=== PATIENT | female | born 1955 | race Hispanic/Latino ===

== ENCOUNTER 2022-01-03 17:32 | Emergency (ER) | payer OTHER ==
[~2022-01-03] VITALS: Ht 154.9 cm; Wt 62.1 kg
[2022-01-03 18:21] LABS: BILIRUBIN,URINE Negative (NEGATIVE); COLOR,URINE Dark Yellow (YELLOW); GLUCOSE, URINE (UA) Negative (NEGATIVE); KETONES,URINE Negative (NEGATIVE); LEUKOCYTE ESTERASE ,URINE Moderate (NEGATIVE); NITRATE,URINE Negative (NEGATIVE); OCCULT BLOOD,URINE Negative (NEGATIVE); PH,URINE 7.5 (5.0-8.0); PROTEIN,URINE Negative (NEGATIVE); UROBILINOGEN,URINE 0.2 mg/dL (0.2-1.0)
[2022-01-03 18:26] LABS: APPEARANCE,URINE CLOUDY (CLEAR)
[2022-01-03] MEDS ORDERED: KETOROLAC 15MG/ML VIAL (15MG/ML) IV ONE (18:30)
[2022-01-03] MEDS ORDERED: ONDANSETRON 4MG INJ IVP ONE (18:30)
[2022-01-03] MEDS ORDERED: 0.9%NACL 1000ML 1,000 ML IV ONE (18:30)
[2022-01-03] MEDS ORDERED: MORPHINE 4 MG SYG IVP ONE (18:30)
[2022-01-03 18:36] LABS: AMORPHOUS SEDIMENT,UR Moderate /LPF (None Seen); BACTERIA,URINE Few /HPF (None Seen); SQUAMOUS EPITHELIAL CELL,UR Rare /HPF (0-2); WBC,URINE 0-1 /HPF (0-1)
[2022-01-03 18:47] LABS: BASOPHILS % (AUTO) 0.4 % (0.0-5.0); EOSINOPHILS % (AUTO) 1.2 % (0.0-8.0); HEMATOCRIT 36.2 % (36-48); LYMPHOCYTES % (AUTO) 29.6 % (21.0-51.0); MEAN CORPUSCULAR HEMOGLOBIN 28.8 pg (27.0-33.0); MEAN CORPUSCULAR HGB CONC 33.1 g/dL (32.0-36.0); MEAN CORPUSCULAR VOLUME 86.8 fL (79-99); MONOCYTES % (AUTO) 6.3 % (3.0-13.0); NEUTROPHILS % (AUTO) 62.1 % (40.0-77.0); PLATELET COUNT (AUTO) 352 K/uL (130-400); RED BLOOD CELL COUNT(AUTO) 4.17 MIL/uL (4.00-5.50); RED CELL DISTRIBUTION WIDTH 13.9 % (11.0-15.5); WHITE BLOOD COUNT (AUTO) 10.9 K/uL (4.8-10.8)
[2022-01-03 19:03] LABS: CREATININE 0.9 mg/dL (0.5-1.5); POTASSIUM 3.2 mmol/L (3.5-5.1)
[2022-01-03 19:10] LABS: ALBUMIN 3.8 g/dL (3.5-5.0); BILIRUBIN,TOTAL 0.1 mg/dL (0.2-1.0); TOTAL PROTEIN, SERUM 8.5 g/dL (6.0-8.3)
[2022-01-03] MEDS ORDERED: FAMOTIDINE 20MG VIAL IV ONE ×2 (20:18→20:30)
[2022-01-03] MEDS ORDERED: PANTOPRAZOLE 40 MG/VIAL ONE (20:18)
[2022-01-03] MEDS ORDERED: PANTOPRAZOLE 40 MG/VIAL IVP ONE (20:30)
[2022-01-03] MEDS ORDERED: PANT40TA PO (21:21)
[2022-01-03] MEDS ORDERED: ONDA4TAB10 PO (21:21)
[2022-01-03] MEDS ORDERED: METO-296 PO (21:21)
[2022-01-03] MEDS ORDERED: DICY20TA2 PO (21:21)
[2022-01-03 21:24] VITALS: BP 115/60
== END 2022-01-03 21:39 | disposition home or self-care (01) ==
LOC: EDH 17:32
DX: K80.20 Calculus of gallbladder without cholecystitis without obstruction (principal); I10 Essential (primary) hypertension; E86.9 Volume depletion, unspecified; R11.10 Vomiting, unspecified
CPT/HCPCS: 36415; 74176; 76705; 80053; 81001; 83690; 84484; 85025; 87088; 93005; 96361; 96374; 96375; 99285; C9113; J1885; J2270; J2405; J3490; J7030

== ENCOUNTER → 2022-06-03 | Outpatient (CLI) | payer OTHER ==
[~2022-06-03] MED LIST: ACET-2123 PO; CALC-1220 PO; CHOL2400 MC; GABA300S PO; HYDR12.54 PO; KETO10TA2 PO; LOSA50TA64 PO; PANT40TA PO; SIMV40TA59 PO; VITA1CAP85 PO
== END | disposition home or self-care (01) ==
LOC: RAH 08:15
PROVIDERS: ATTEND Internal Medicine
DX: E27.8 Other specified disorders of adrenal gland (principal); R10.11 Right upper quadrant pain; Z90.49 Acquired absence of other specified parts of digestive tract
CPT/HCPCS: 76700

== ENCOUNTER → 2022-06-04 | Outpatient (CLI) | payer OTHER ==
[~2022-06-04] MED LIST changes: +IOHEXOL 350 MG/ML 100ML INFUS..BTL IV ONE
== END | disposition home or self-care (01) ==
LOC: RAH 10:21
PROVIDERS: ATTEND Internal Medicine
DX: E27.8 Other specified disorders of adrenal gland (principal)
CPT/HCPCS: 74178; Q9967

== ENCOUNTER → 2022-07-05 | Outpatient (CLI) | payer OTHER ==
[~2022-07-05] MED LIST changes: +BENZ-70 PO; -IOHEXOL 350 MG/ML 100ML INFUS..BTL IV ONE; +IOHEXOL-350 75 ML VIAL IV ONE
== END | disposition home or self-care (01) ==
LOC: RAH 08:51
PROVIDERS: ATTEND Internal Medicine
DX: R91.8 Other nonspecific abnormal finding of lung field (principal)
CPT/HCPCS: 71270; Q9967

== ENCOUNTER 2022-07-06 11:09 | Inpatient (IN) | payer OTHER ==
[~2022-07-06] VITALS: Ht 157.5 cm; Wt 56.7 kg
[~2022-07-06 11:09] MED LIST changes: -BENZ-70 PO; -IOHEXOL-350 75 ML VIAL IV ONE
[2022-07-06 11:31] LABS: BASOPHILS % (AUTO) 0.4 % (0.0-5.0); EOSINOPHILS % (AUTO) 5.5 % (0.0-8.0); HEMATOCRIT 29.2 % (36-48); MEAN CORPUSCULAR HEMOGLOBIN 26.5 pg (27.0-33.0); MEAN CORPUSCULAR HGB CONC 32.9 g/dL (32.0-36.0); MEAN CORPUSCULAR VOLUME 80.7 fL (79-99); MONOCYTES % (AUTO) 11.2 % (3.0-13.0); NEUTROPHILS % (AUTO) 65.4 % (40.0-77.0); PLATELET COUNT (AUTO) 457 K/uL (130-400); RED BLOOD CELL COUNT(AUTO) 3.62 MIL/uL (4.00-5.50); RED CELL DISTRIBUTION WIDTH 14.1 % (11.0-15.5); WHITE BLOOD COUNT (AUTO) 12.3 K/uL (4.8-10.8)
[2022-07-06 11:44] LABS: CREATININE 0.8 mg/dL (0.5-1.5); POTASSIUM 3.2 mmol/L (3.5-5.1)
[2022-07-06] MEDS ORDERED: MORPHINE 2 MG SYG ONE (11:47)
[2022-07-06 11:48] LABS: ALBUMIN 2.7 g/dL (3.5-5.0); TOTAL PROTEIN, SERUM 7.9 g/dL (6.0-8.3)
[2022-07-06] MEDS ORDERED: MORPHINE 2 MG SYG IVP ONE (12:00)
[2022-07-06] MEDS ORDERED: ACETAMINOPHEN 650 MG SUPPOSITORY RC PRN (14:30)
[2022-07-06] MEDS ORDERED: POTASSIUM CHLORIDE 20MEQ/100ML 100 ML IV PRN ×2 (14:30)
[2022-07-06] MEDS ORDERED: ALBUTEROL INHALER 90MCG/INH IH PRN (14:30)
[2022-07-06] MEDS ORDERED: TEMAZEPAM 15 MG CAPSULE PO PRN (14:30)
[2022-07-06] MEDS ORDERED: ACETAMINOPHEN 325 MG TAB PO PRN (14:30)
[2022-07-06] MEDS ORDERED: LIDOCAINE HCL-MPF 1% 2ML VIAL IV PRN ×2 (14:30)
[2022-07-06] MEDS ORDERED: POTASSIUM CHLORIDE 10% ELIXIR 20 MEQ/15 ML UDCUP PO PRN (14:30)
[2022-07-06] MEDS ORDERED: CLONIDINE HCL 0.1 MG TABLET PO PRN ×2 (14:30)
[2022-07-06] MEDS ORDERED: LACTULOSE 20 GM/30 ML UDCUP PO PRN (14:30)
[2022-07-06] MEDS: TRAMADOL HCL 50 MG TABLET PO PRN (15:03)
[2022-07-06] MEDS: MORPHINE 2 MG SYG IVP PRN (15:03)
[2022-07-06] MEDS: LACTATED RINGERS 1000ML 1,000 ML IV SCH (15:14)
[2022-07-06] MEDS: ZOSYN 3.375GM +NS 50ML IV SCH ×2 (15:14→21:54)
[2022-07-06] MEDS: KCL 20 MEQ ERTAB PO PRN ×2 (15:21→17:06)
[2022-07-06] MEDS ORDERED: GUAIFENESIN-CODEINE 5 ML SYRUP PO PRN (16:00)
[2022-07-06] MEDS ORDERED: SOLU-MEDROL 125MG VIAL IVP ONE (16:00)
[2022-07-06] MEDS: INSULIN HUMULIN R 100 UNIT/ML 3ML SQ SCH ×2 (16:30→19:36)
[2022-07-06 16:52] LABS: APPEARANCE,URINE CLEAR (CLEAR); BILIRUBIN,URINE NEGATIVE (NEGATIVE); COLOR,URINE LIGHT-YELLOW (YELLOW); GLUCOSE, URINE (UA) NEGATIVE (NEGATIVE); KETONES,URINE NEGATIVE (NEGATIVE); LEUKOCYTE ESTERASE ,URINE 25 Leu/uL (NEGATIVE); NITRATE,URINE NEGATIVE (NEGATIVE); OCCULT BLOOD,URINE NEGATIVE (NEGATIVE); PH,URINE 6.5 (5.0-8.0); PROTEIN,URINE NEGATIVE (NEGATIVE); UROBILINOGEN,URINE 0.2 mg/dL (0.2-1.0)
[2022-07-06 16:57] LABS: RBC,URINE 0-1 /HPF (0-1); SQUAMOUS EPITHELIAL CELL,UR RARE /HPF (0-2)
[2022-07-06] MEDS ORDERED: BENZ-70 PO (17:21)
[2022-07-06 18:00] VITALS: BP 114/59
[2022-07-06] MEDS: SOLU-MEDROL 40MG VIAL IVP SCH (19:50)
[2022-07-06 20:00] VITALS: BP 130/75
[2022-07-06 20:23] LABS: PROTHROMBIN TIME 10.9 SEC (9.6-11.6)
[2022-07-06 20:24] LABS: PARTIAL THROMBOPLASTIN TIME 31.6 SEC (26.3-35.5)
[2022-07-06] MEDS: ONDANSETRON 4MG INJ IVP PRN (21:54)
[2022-07-07] VITALS: BP 107/57
[2022-07-07] MEDS: TRAMADOL HCL 50 MG TABLET PO PRN ×3 (00:39→21:16)
[2022-07-07 02:11] LABS: BASOPHILS % (AUTO) 0.1 % (0.0-5.0); HEMATOCRIT 28.5 % (36-48); LYMPHOCYTES % (AUTO) 10.5 % (21.0-51.0); MEAN CORPUSCULAR HEMOGLOBIN 26.6 pg (27.0-33.0); MEAN CORPUSCULAR HGB CONC 32.6 g/dL (32.0-36.0); MEAN CORPUSCULAR VOLUME 81.4 fL (79-99); MONOCYTES % (AUTO) 0.4 % (3.0-13.0); NEUTROPHILS % (AUTO) 88.5 % (40.0-77.0); PLATELET COUNT (AUTO) 456 K/uL (130-400); RED CELL DISTRIBUTION WIDTH 14.3 % (11.0-15.5); WHITE BLOOD COUNT (AUTO) 11.1 K/uL (4.8-10.8)
[2022-07-07 02:24] LABS: CREATININE 0.8 mg/dL (0.5-1.5); PHOSPHORUS 2.8 mg/dL (2.5-4.9); POTASSIUM 4.4 mmol/L (3.5-5.1)
[2022-07-07 02:31] LABS: CREATINE KINASE, TOTAL 28 U/L (21-232); MYOGLOBIN 23 ng/mL (10-92)
[2022-07-07 04:00] VITALS: BP 102/56
[2022-07-07] MEDS: ZOSYN 3.375GM +NS 50ML IV SCH ×3 (05:30→22:11)
[2022-07-07] MEDS: INSULIN HUMULIN R 100 UNIT/ML 3ML SQ SCH ×4 (05:37→21:00)
[2022-07-07 08:00] VITALS: BP 100/53
[2022-07-07] MEDS: SOLU-MEDROL 40MG VIAL IVP SCH ×2 (08:57→20:34)
[2022-07-07] MEDS: ENOXAPARIN SODIUM 40 MG/0.4 ML SYRINGE SQ SCH (08:58)
[2022-07-07] MEDS: PANTOPRAZOLE 40 MG TAB DR PO SCH (08:59)
[2022-07-07] MEDS: BENZONATATE 100 MG CAPSULE PO PRN ×2 (09:17→21:16)
[2022-07-07 11:30] VITALS: BP 109/60
[2022-07-07] MEDS: LACTATED RINGERS 1000ML 1,000 ML IV SCH (11:49)
[2022-07-07 16:00] VITALS: BP 111/59
[2022-07-07 20:00] VITALS: BP 125/65
[2022-07-07] MEDS: LOSARTAN 50 MG TABLET PO SCH (20:34)
[2022-07-07] MEDS: DIPHENHYDRAMINE HCL 25 MG CAPSULE PO PRN (23:15)
[2022-07-08] VITALS (24 sets, daily range): BP systolic 97–125; BP diastolic 37–86
[2022-07-08] MEDS: MORPHINE 2 MG SYG IVP PRN ×4 (01:47→20:23)
[2022-07-08 04:45] LABS: HEMATOCRIT 27.3 % (36-48); MEAN CORPUSCULAR HEMOGLOBIN 26.6 pg (27.0-33.0); MEAN CORPUSCULAR HGB CONC 32.6 g/dL (32.0-36.0); MEAN CORPUSCULAR VOLUME 81.7 fL (79-99); RED BLOOD CELL COUNT(AUTO) 3.34 MIL/uL (4.00-5.50); RED CELL DISTRIBUTION WIDTH 14.5 % (11.0-15.5); WHITE BLOOD COUNT (AUTO) 24.2 K/uL (4.8-10.8)
[2022-07-08 05:18] LABS: CREATININE 0.7 mg/dL (0.5-1.5)
[2022-07-08] MEDS: ZOSYN 3.375GM +NS 50ML IV SCH ×2 (05:33→14:48)
[2022-07-08] MEDS: INSULIN HUMULIN R 100 UNIT/ML 3ML SQ SCH ×3 (05:33→21:00)
[2022-07-08] MEDS: LACTATED RINGERS 1000ML 1,000 ML IV SCH (05:34)
[2022-07-08 07:18] LABS: ABG BASE EXCESS 1.8 mmol/L (-2.0-3.0); ABG HCO3 25.2 mmol/L (21.0-28.0); ABG PCO2 35 mmHg (32-45)
[2022-07-08] MEDS: PANTOPRAZOLE 40 MG TAB DR PO SCH (09:00)
[2022-07-08] MEDS: ENOXAPARIN SODIUM 40 MG/0.4 ML SYRINGE SQ SCH (09:00)
[2022-07-08] MEDS ORDERED: PROPOFOL 10 MG/ML 20ML VIAL IV ONE ×2 (11:54→12:35)
[2022-07-08] MEDS ORDERED: FENTANYL CITRATE PF 50 MCG/1 ML 2ML VIAL ONE (11:54)
[2022-07-08] MEDS ORDERED: MIDAZOLAM HCL 1 MG/ML 2ML VIAL ONE (11:54)
[2022-07-08] MEDS ORDERED: GLYCOPYRROLATE 0.2 MG/ML 5 ML VIAL ONE (11:54)
[2022-07-08] MEDS ORDERED: EPINEPHRINE PF 1MG (1:1,000) 1 MG/ML AMP ONE (12:13)
[2022-07-08 17:48] LABS: APPEARANCE BODY FLUID CLOUDY (CLEAR); BODY FLUID WBC 26 /cu. mm.; COLOR,BODY FLUID PINK (LT YELLOW); SPECIMENTYPE,BODY FLUID LAVAGE; TOTAL VOLUME,BODY FLUID 20 mL
[2022-07-08 17:49] LABS: BODY FLUID RBC 13600 /cu. mm.
[2022-07-08 18:04] LABS: BF LYMPHOCYTE 14 %; BF MONOCYTE 3 %
[2022-07-08] MEDS: LOSARTAN 50 MG TABLET PO SCH (20:29)
[2022-07-08] MEDS: SOLU-MEDROL 40MG VIAL IVP SCH (20:29)
[2022-07-09] VITALS: BP 120/55
[2022-07-09] MEDS: BENZONATATE 100 MG CAPSULE PO PRN (00:24)
[2022-07-09] MEDS: MORPHINE 2 MG SYG IVP PRN ×2 (00:25→10:03)
[2022-07-09] MEDS: LACTATED RINGERS 1000ML 1,000 ML IV SCH ×2 (02:30→22:30)
[2022-07-09 04:00] VITALS: BP 95/54
[2022-07-09] MEDS: TRAMADOL HCL 50 MG TABLET PO PRN (04:49)
[2022-07-09 05:28] LABS: HEMATOCRIT 26.4 % (36-48); MEAN CORPUSCULAR HEMOGLOBIN 26.7 pg (27.0-33.0); MEAN CORPUSCULAR HGB CONC 32.6 g/dL (32.0-36.0); RED BLOOD CELL COUNT(AUTO) 3.22 MIL/uL (4.00-5.50); RED CELL DISTRIBUTION WIDTH 14.7 % (11.0-15.5); WHITE BLOOD COUNT (AUTO) 16.8 K/uL (4.8-10.8)
[2022-07-09 05:44] LABS: CREATININE 0.8 mg/dL (0.5-1.5)
[2022-07-09] MEDS: INSULIN HUMULIN R 100 UNIT/ML 3ML SQ SCH ×4 (07:30→21:00)
[2022-07-09 08:00] VITALS: BP 91/40
[2022-07-09] MEDS: LEVOFLOXACIN 500 MG TABLET PO SCH (10:03)
[2022-07-09] MEDS: PANTOPRAZOLE 40 MG TAB DR PO SCH (10:04)
[2022-07-09] MEDS: SOLU-MEDROL 40MG VIAL IVP SCH (10:04)
[2022-07-09] MEDS: ENOXAPARIN SODIUM 40 MG/0.4 ML SYRINGE SQ SCH (10:05)
[2022-07-09 11:31] VITALS: BP 129/59
[2022-07-09] MEDS ORDERED: KETOROLAC 15MG/ML VIAL (15MG/ML) IV PRN (12:00)
[2022-07-09] MEDS ORDERED: FENTANYL 25 MCG/HR PATCH TD SCH (14:00)
[2022-07-09] MEDS: HYDROCODONE/ACETAMINOPHEN 7.5/325 MG TAB PO PRN ×2 (14:43→23:13)
[2022-07-09 15:52] VITALS: BP 145/68
[2022-07-09] MEDS: POLYETHYLENE GLYCOL 3350 17 GM POWD.PACK PO SCH (17:00)
[2022-07-09] MEDS: DOCUSATE SODIUM 100 MG CAP PO SCH (17:00)
[2022-07-09 20:00] VITALS: BP 140/62
[2022-07-09] MEDS: LOSARTAN 50 MG TABLET PO SCH (20:59)
[2022-07-10] VITALS: BP 132/64
[2022-07-10] MEDS: DIPHENHYDRAMINE HCL 25 MG CAPSULE PO PRN (03:06)
[2022-07-10 04:00] VITALS: BP 111/65
[2022-07-10 05:32] LABS: HEMATOCRIT 26.3 % (36-48); MEAN CORPUSCULAR HEMOGLOBIN 27.2 pg (27.0-33.0); MEAN CORPUSCULAR HGB CONC 33.1 g/dL (32.0-36.0); MEAN CORPUSCULAR VOLUME 82.2 fL (79-99); RED BLOOD CELL COUNT(AUTO) 3.2 MIL/uL (4.00-5.50); RED CELL DISTRIBUTION WIDTH 14.5 % (11.0-15.5); WHITE BLOOD COUNT (AUTO) 16.2 K/uL (4.8-10.8)
[2022-07-10 06:01] LABS: ALBUMIN 2.2 g/dL (3.5-5.0); CREATININE 0.8 mg/dL (0.5-1.5); MAGNESIUM 2.1 mg/dL (1.80-2.40); POTASSIUM 3.3 mmol/L (3.5-5.1); TOTAL PROTEIN, SERUM 6.2 g/dL (6.0-8.3)
[2022-07-10] MEDS: INSULIN HUMULIN R 100 UNIT/ML 3ML SQ SCH ×4 (06:40→20:23)
[2022-07-10] MEDS: DOCUSATE SODIUM 100 MG CAP PO SCH ×2 (06:41→16:15)
[2022-07-10] MEDS: KCL 20 MEQ ERTAB PO PRN (06:41)
[2022-07-10 08:00] VITALS: BP 149/74
[2022-07-10] MEDS: POLYETHYLENE GLYCOL 3350 17 GM POWD.PACK PO SCH (09:00)
[2022-07-10] MEDS: MORPHINE 2 MG SYG IVP PRN (09:59)
[2022-07-10] MEDS: LEVOFLOXACIN 500 MG TABLET PO SCH (10:05)
[2022-07-10] MEDS: PANTOPRAZOLE 40 MG TAB DR PO SCH (10:05)
[2022-07-10] MEDS: ENOXAPARIN SODIUM 40 MG/0.4 ML SYRINGE SQ SCH (10:07)
[2022-07-10] MEDS: BENZONATATE 100 MG CAPSULE PO PRN (11:18)
[2022-07-10] MEDS: HYDROCODONE/ACETAMINOPHEN 7.5/325 MG TAB PO PRN ×3 (11:30→20:40)
[2022-07-10 12:00] VITALS: BP 167/85
[2022-07-10 16:00] VITALS: BP 133/72
[2022-07-10] MEDS ORDERED: BENZONATATE 100 MG CAPSULE PO PRN (16:00)
[2022-07-10] MEDS ORDERED: BISACODYL 5 MG TABLET.DR PO ONE (16:12)
[2022-07-10] MEDS ORDERED: BISACODYL 5 MG TABLET.DR PO SCH ×2 (16:30)
[2022-07-10 20:00] VITALS: BP 127/62
[2022-07-10] MEDS: LOSARTAN 50 MG TABLET PO SCH (20:21)
[2022-07-11] VITALS (10 sets, daily range): BP systolic 90–145; BP diastolic 45–71
[2022-07-11 05:57] LABS: HEMATOCRIT 28.5 % (36-48); MEAN CORPUSCULAR HEMOGLOBIN 26.5 pg (27.0-33.0); MEAN CORPUSCULAR HGB CONC 31.9 g/dL (32.0-36.0); MEAN CORPUSCULAR VOLUME 82.8 fL (79-99); RED BLOOD CELL COUNT(AUTO) 3.44 MIL/uL (4.00-5.50); RED CELL DISTRIBUTION WIDTH 14.6 % (11.0-15.5); WHITE BLOOD COUNT (AUTO) 16.4 K/uL (4.8-10.8)
[2022-07-11 06:11] LABS: INR 1.04 (0.85-1.15); PROTHROMBIN TIME 11.3 SEC (9.6-11.6)
[2022-07-11] MEDS: INSULIN HUMULIN R 100 UNIT/ML 3ML SQ SCH ×4 (06:15→20:10)
[2022-07-11 06:27] LABS: ALBUMIN 2.2 g/dL (3.5-5.0); CREATININE 0.8 mg/dL (0.5-1.5); POTASSIUM 3.7 mmol/L (3.5-5.1); TOTAL PROTEIN, SERUM 6.4 g/dL (6.0-8.3)
[2022-07-11] MEDS: DOCUSATE SODIUM 100 MG CAP PO SCH ×2 (06:35→13:38)
[2022-07-11] MEDS: MORPHINE 2 MG SYG IVP PRN (12:39)
[2022-07-11] MEDS: LEVOFLOXACIN 500 MG TABLET PO SCH (13:38)
[2022-07-11] MEDS: PANTOPRAZOLE 40 MG TAB DR PO SCH (13:38)
[2022-07-11] MEDS: ENOXAPARIN SODIUM 40 MG/0.4 ML SYRINGE SQ SCH (13:38)
[2022-07-11] MEDS: POLYETHYLENE GLYCOL 3350 17 GM POWD.PACK PO SCH (13:40)
[2022-07-11] MEDS ORDERED: BISACODYL 5 MG TABLET.DR PO ONE (13:45)
[2022-07-11] MEDS ORDERED: LUBIPROSTONE 24 MCG CAP PO SCH (16:00)
[2022-07-11] MEDS: HYDROCODONE/ACETAMINOPHEN 7.5/325 MG TAB PO PRN ×2 (16:23→21:33)
[2022-07-11] MEDS: LOSARTAN 50 MG TABLET PO SCH (20:13)
[2022-07-11] MEDS: LACTATED RINGERS 1000ML 1,000 ML IV SCH (20:14)
[2022-07-12 03:54] VITALS: BP 121/61
[2022-07-12] MEDS: INSULIN HUMULIN R 100 UNIT/ML 3ML SQ SCH ×3 (05:38→16:30)
[2022-07-12] MEDS: DOCUSATE SODIUM 100 MG CAP PO SCH ×2 (06:29→16:30)
[2022-07-12] MEDS: ENOXAPARIN SODIUM 40 MG/0.4 ML SYRINGE SQ SCH (08:32)
[2022-07-12] MEDS: PANTOPRAZOLE 40 MG TAB DR PO SCH (08:32)
[2022-07-12] MEDS: LEVOFLOXACIN 500 MG TABLET PO SCH (08:32)
[2022-07-12] MEDS: HYDROCODONE/ACETAMINOPHEN 7.5/325 MG TAB PO PRN (08:33)
[2022-07-12] MEDS: POLYETHYLENE GLYCOL 3350 17 GM POWD.PACK PO SCH (08:40)
[2022-07-12 10:06] VITALS: BP 106/63
[2022-07-12] MEDS: LACTATED RINGERS 1000ML 1,000 ML IV SCH ×2 (10:16→10:30)
[2022-07-12 11:11] VITALS: BP 118/63
[2022-07-12] MEDS: ONDANSETRON 4MG INJ IVP PRN (12:51)
[2022-07-12] MEDS ORDERED: FENTANYL 50 MCG/HR PATCH TD SCH (14:00)
[2022-07-12] MEDS ORDERED: LUBI8CAP PO (15:52)
[2022-07-12] MEDS ORDERED: HYDR-4064 PO (15:52)
[2022-07-12] MEDS ORDERED: LACT PO (15:52)
[2022-07-12] MEDS ORDERED: BENZ-70 PO (15:52)
[2022-07-12] MEDS ORDERED: Docusate Sodium 100 Mg Cap PO (15:52)
[2022-07-12] MEDS ORDERED: POLY17PO4 PO (15:52)
[2022-07-12 16:22] VITALS: BP 118/54
== END 2022-07-12 18:55 | disposition home or self-care (01) | DRG 193 ==
LOC: EDH 11:09 → OBSVTOIN 14:08 → EDHIP 14:08 → 3AH 15:49
PROVIDERS: ADMIT Internal Medicine Critical Care Medicine; ATTEND Internal Medicine Critical Care Medicine
PROC: 0B9C8ZX Drainage of Right Upper Lung Lobe, Via Natural or Artificial Opening Endoscopic, Diagnostic (ICD-10-PCS; principal; 2022-07-08)
PROC: 0BD48ZX Extraction of Right Upper Lobe Bronchus, Via Natural or Artificial Opening Endoscopic, Diagnostic (ICD-10-PCS; 2022-07-08)
PROC: 0BBC3ZX Excision of Right Upper Lung Lobe, Percutaneous Approach, Diagnostic (ICD-10-PCS; 2022-07-11)
DX: J18.9 Pneumonia, unspecified organism (principal); J96.01 Acute respiratory failure with hypoxia; E44.0 Moderate protein-calorie malnutrition; Z20.822 Contact with and (suspected) exposure to COVID-19; D64.9 Anemia, unspecified; E78.00 Pure hypercholesterolemia, unspecified; I10 Essential (primary) hypertension; K21.9 Gastro-esophageal reflux disease without esophagitis; T38.0X5A Adverse effect of glucocorticoids and synthetic analogues, initial encounter; R59.0 Localized enlarged lymph nodes; Z90.49 Acquired absence of other specified parts of digestive tract; Z68.22 Body mass index [BMI] 22.0-22.9, adult
CPT/HCPCS: 31624; 32405; 36415; 36600; 70450; 71045; 76000; 78306; 80048; 80053; 81001; 82435; 82550; 82803; 82947; 82948; 83605; 83735; 83874; 84100; 84132; 84295; 84484; 85018; 85025; 85027; 85378; 85610; 85730; 87071; 87101; 87116; 87205; 87206; 87426; 87804; 89051; 93005; 93970; 94760; A4606; A9503; G0378; J0171; J1650; J2250; J2405; J2543; J2704; J2920; J2930; J3010; J3490; J7030; J7120; Q0163